=== PATIENT | female | born 1975 | race Caucasian/White ===

== ENCOUNTER → 2018-10-25 | Outpatient (REF) | payer BC | LOC: M LAB LCGH 12:01 | PROVIDERS: ATTEND Obstetrics & Gynecology | DX: Z12.4 Encounter for screening for malignant neoplasm of cervix (principal) ==

== ENCOUNTER → 2020-12-26 | Outpatient (REF) | payer BC, OTHER | LOC: M LAB REF 14:15 | PROVIDERS: ATTEND Physician Assistant | DX: L57.0 Actinic keratosis (principal) ==